=== PATIENT | male | born 1995 | race Caucasian/White ===

== ENCOUNTER 2020-08-16 19:12 | Emergency (ER) | payer OTHER ==
[~2020-08-16] VITALS: Ht 175.3 cm; Wt 98.3 kg
[2020-08-16 19:13] VITALS: BP 141/76
[2020-08-16] MEDS ORDERED: MELA3TAB13 PO (19:21)
[2020-08-16] MEDS ORDERED: PRAZ5CAP PO (19:21)
[2020-08-16] MEDS ORDERED: ZOLO100T PO (19:21)
[2020-08-16] MEDS ORDERED: LIDOCAINE W/EPINEPHRINE 1% 20ML VIAL SC ONE (20:05)
== END 2020-08-16 21:02 | disposition home or self-care (01) ==
LOC: M ED 19:12
DX: S61.011A Laceration without foreign body of right thumb without damage to nail, initial encounter (principal); Y92.009 Unspecified place in unspecified non-institutional (private) residence as the place of occurrence of the external cause; Y93.G1 Activity, food preparation and clean up

== ENCOUNTER 2020-08-26 11:27 | Emergency (ER) | payer OTHER ==
[~2020-08-26] VITALS: Ht 177.8 cm; Wt 97.7 kg
[~2020-08-26 11:27] MED LIST: MELA3TAB13 PO; PRAZ5CAP PO; ZOLO100T PO
[2020-08-26 13:57] VITALS: BP 120/68
--- NOTE | 2020-08-27 07:16 | ECGEPIP ---
[facility] - ED Test Date: 2020-08-26 Pat Name: ARLEEN SOLIS Department: Room: - Gender: Male Business Transformation Manager: Kendra BARKER : 1995 Requested By: Mira Enriquez Order Number: [id number] Reading MD: Ulises Garcia Measurements Intervals [place] Rate: 65 P: 40 NC: 154 QRS: 28 QRSD: 96 T: 15 QT: 384 QTc: 399 Interpretive Statements Normal sinus rhythm with sinus arrhythmia BENIGN EARLY REPOLARIZATION NO PRIORS FOR COMPARISON Electronically Signed on 08-27-2020 7:15:47 EDT by Ulises Garcia
== END 2020-08-26 14:15 | disposition home or self-care (01) ==
LOC: EDBD 11:27 → M ED 11:27
DX: R55 Syncope and collapse (principal); F41.9 Anxiety disorder, unspecified; F17.290 Nicotine dependence, other tobacco product, uncomplicated; Z79.899 Other long term (current) drug therapy; Z91.041 Radiographic dye allergy status; Z82.49 Family history of ischemic heart disease and other diseases of the circulatory system